=== PATIENT | female | born 1990 | race Caucasian/White ===

== ENCOUNTER 2016-12-20 21:33 | Emergency (ER) | payer BC ==
[2016-12-20 21:37] VITALS: BMI 40.7
[2016-12-20 21:39] VITALS: BP 136/68; PULSE 118; RESP 18; TEMP 99.4; O2SAT 96
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
[2016-12-20] MEDS ORDERED: Lidocaine 1% w Epi 1:100,000 Inj ONE (21:51)
[2016-12-20] MEDS ORDERED: Lidocaine/Epi 1% 1:100000 20 ML IJ STA (22:58)
== END 2016-12-20 23:06 | disposition home or self-care (01) ==
LOC: H.ER 21:33
DX: S01.81XA Laceration without foreign body of other part of head, initial encounter (principal); Y04.8XXA Assault by other bodily force, initial encounter; Z23 Encounter for immunization

== ENCOUNTER 2017-10-05 22:14 | Emergency (ER) | payer BC ==
[2017-10-05 22:14] VITALS: BMI 40.7
[2017-10-05 22:40] VITALS: BP 137/84; PULSE 77; RESP 18; TEMP 98.5; O2SAT 100
--- NOTE | 2017-10-05 22:43 | ED PDOC ---
HPI: General Adult Time Seen by Provider: 10/05/17 22:41 Chief Complaint (Nursing): Hip Pain Chief Complaint (Provider): leg pain History Per: Patient Additional Complaint(s): 26-year-old female presents with left hip pain for 2 weeks. She denies trauma or injury but states that she does heavy lifting at work. Patient took Aleve a few days ago which helped somewhat with pain. She is able to walk has slight pain when doing so, no fever or chills. PMD: Dr. Adamson Past Medical History Reviewed: Historical Data, Nursing Documentation, Vital Signs Vital Signs: Last Vital Signs Temp 98.5 F 10/05/17 22:33 Pulse 77 10/05/17 22:33 Resp 18 10/05/17 22:33 BP 137/84 10/05/17 22:33 Pulse Ox 100 10/05/17 22:43 - Medical History PMH: No Chronic Diseases - Surgical History Surgical History: Appendectomy, Cholecystectomy - Family History Family History: States: No Known Family Hx - Living Arrangements Living Arrangements: With Family - Social History Current smoker - smoking cessation education provided: No Alcohol: None Drugs: Denies - Home Medications Home Medications: Ambulatory Orders Medication Instructions Recorded No Known Home Med 07/11/16 - Allergies Allergies/Adverse Reactions: Allergies Allergy/AdvReac Type Severity Reaction Status Date / Time No Known Allergies Allergy Verified 12/20/16 21:36 Review of Systems ROS Statement: Except As Marked, All Systems Reviewed And Found Negative Constitutional: Negative for: Fever Musculoskeletal: Negative for: Other (left hip pain for 2 weeks) Physical Exam - Reviewed Nursing Documentation Reviewed: Yes Vital Signs Reviewed: Yes - Physical Exam Appears: Positive for: Well, Non-toxic, No Acute Distress Skin: Positive for: Normal Color. Negative for: Rash Eye Exam: Positive for: Normal appearance Extremity: Positive for: Other (Mild tenderness to left lateral hip with full range of motion, no erythema or warmth noted to hip region.) Neurologic/Psych: Positive for: Alert, Oriented, Gait (steady) - Laboratory Results Urine POC: Negative - ECG O2 Sat by Pulse Oximetry: 100 Pulse Ox Interpretation: Normal - Other Rad Left hip and pelvis x-rays X-Ray: Interpreted by Me, Viewed By Me X-Ray Interpretation: no fx, no dis Medical Decision Making Medical Decision Makin26 year old with left hip pain Plan: test X-ray left hip and pelvis Pain meds declined Patient is aware of x-ray results. Patient was advised to take over-the- counter Tylenol or Advil for pain and was referred to orthopedist live ammunition inspector for further evaluation. Disposition - Clinical Impression Clinical Impression: Hip pain - Patient ED Disposition Is Patient to be Admitted: No Counseled Patient/Family Regarding: Studies Performed, Diagnosis, Need For Followup - Disposition Referrals: Patrice Marcelo MD [Staff Provider] - Disposition: Routine/Home Disposition Time: 23:20 Condition: STABLE Additional Instructions: Take over the counter advil for pain as needed. Rest affected area. Follow up with primary care doctor or with orthopedist for further evaluation. Instructions: Hip Pain Forms: [facility] (Persian), [facility] School/Work Excuse
--- NOTE | 2017-10-06 08:35 | RAD ---
PROCEDURE: Left Hip X-ray Radiographs. HISTORY: pain to left hip x 2 weeks COMPARISON: None. FINDINGS: BONES: The pelvic ring is intact. Bone alignment and mineralization are normal. There is no acute displaced fracture or bone destruction. JOINTS: Normal. SOFT TISSUES: Normal. OTHER FINDINGS: None. IMPRESSION: No acute displaced fracture or dislocation.
== END 2017-10-05 23:45 | disposition home or self-care (01) ==
LOC: H.ER 22:14
DX: M25.552 Pain in left hip (principal)